=== PATIENT | male | born 1970 | race Caucasian/White ===

== ENCOUNTER 2016-09-03 10:43 | Emergency (ER) | payer BC, MEDICAID ==
[2016-09-03] MEDS ORDERED: Diazepam TAB(*) 5 MG PO ONE (11:01)
--- NOTE | 2016-09-03 11:32 | RAD ---
HISTORY: Cervical pain, recent injury COMPARISONS: December 29, 2008 VIEWS: 3, Frontal, lateral, and open-mouth odontoid views of the cervical spine. FINDINGS: The cervical spine is visualized from the skull base through C7-T1. ALIGNMENT: There is straightening of the normal cervical lordosis. VERTEBRAL BODIES: The odontoid process is intact. The atlantoaxial intervals are symmetric. There is mild anterolateral marginal osteophyte formation at C5-C6. JOINTS: There is mild uncovertebral hypertrophy. INTERVERTEBRAL DISCS: There is diffuse loss of intervertebral disc height. SOFT TISSUE: The prevertebral soft tissues are normal. OTHER: The skull base is normal. The lung apices are clear. IMPRESSION: MILD DEGENERATIVE CHANGES. STRAIGHTENING OF THE CERVICAL LORDOSIS.
--- NOTE | 2016-09-03 12:24 | ED ---
Neck Pain - HPI Summary HPI Summary: Pt here w/ acute Rt sided neck pain. Was lifting a trail hitch a couple of days ago and has Rt sided neck soreness later than day. This has progressed to worse pain over the past couple of days - worse w/ neck movement and painful to swallow as Rt side of neck feels swollen and sore. Has some pain radiating into Rt shoulder and upper arm. Denies numbness, weakness into Rt UE - still moving this but hurts neck to do so when he reaches arm above 90 degrees. H/o tingling in finger tips at times x years - no change since incident and pain. - History of Current Complaint Chief Complaint: EDNeckComplaint Stated Complaint: NECK PAIN, Time Seen by Provider: 09/03/16 10:56 Hx Obtained From: Patient Pain Intensity: 8 - Allergies/Home Medications Allergies/Adverse Reactions: Allergies Allergy/AdvReac Type Severity Reaction Status Date / Time Codeine Allergy Severe syncope Verified 04/26/12 18:16 Levofloxacin [From Levaquin] Allergy See Comment Verified 10/17/13 19:27 PMH/Surg Hx/FS Hx/Imm Hx Previously Healthy: Yes Endocrine/Hematology History: Denies: Hx Diabetes, Hx Thyroid Disease Cardiovascular History: Reports: Hx Hypercholesterolemia - controlled w/ diet, Hx Hypertension - controlled w/ diet Denies: Hx Pacemaker/ICD Respiratory History: Denies: Hx Asthma, Hx Chronic Obstructive Pulmonary Disease (COPD) GI History: Denies: Hx Ulcer Musculoskeletal History: Reports: Hx Arthritis - cervical Sensory History: Denies: Hx Hearing Aid Psychiatric History: Denies: Hx Panic Disorder - Surgical History Surgery Procedure, Year, and Place: appendectomy 1985,. TONSILECTOMY Infectious Disease History: No Infectious Disease History: Denies: Hx Hepatitis, Hx Human Immunodeficiency Virus (HIV), History Other Infectious Disease, Traveled Outside the [place] in Last 30 Days - Family History Known Family History: Positive: Cardiac Disease, Hypertension - Social History Occupation: Unemployed Lives: With Family Alcohol Use: Rare Substance Use Type: Reports: Excessive Caffeine, Marijuana - daily Smoking Status (MU): Current Every Day Smoker Type: Cigarettes Amount Used/How Often: 1 1/2 PPD Length of Time of Smoking/Using Tobacco: 24 YEARS Have You Smoked in the Last Year: Yes Review of Systems Constitutional: Negative Negative: Photophobia, Blurred Vision, Diplopia Negative: Sore Throat, Ear Ache Negative: Chest Pain Negative: Shortness Of Breath Negative: Vomiting, Nausea Positive: no symptoms reported Musculoskeletal: Other - see HPI Skin: Negative Negative: Rash, Bruising Neurological: Other - see HPI Negative: Headache, Weakness, Numbness Psychological: Normal All Other Systems Reviewed And Are Negative: Yes Physical Exam Triage Information Reviewed: Yes Vital Signs On Initial Exam: Initial Vitals Temp Pulse Resp BP Pulse Ox 98.0 F 68 18 151/92 99 09/03/16 10:45 09/03/16 10:45 09/03/16 10:45 09/03/16 10:45 09/03/16 10:45 Vital Signs Reviewed: Yes Appearance: Positive: Well-Appearing, Well-Nourished, Pain Distress - mild, in c -collar Skin: Positive: Warm, Dry - no erythema, no ecchymosis over affected area Head/Face: Positive: Normal Head/Face Inspection Eyes: Positive: Normal, EOMI, DRE, Conjunctiva Clear ENT: Positive: Hearing grossly normal, Pharynx normal Neck: Positive: Supple, Tenderness @ - Rt SCM w/mild edema and TTP (NOTE: pt has heat pack over the area prior to exam) Respiratory/Lung Sounds: Positive: Breath Sounds Present Cardiovascular: Positive: Normal, Pulses are Symmetrical in both Upper and Lower Extremities Musculoskeletal: Positive: Strength/ROM Intact - pt has strength to reach w/ arms however has Rt sided neck pain w/ Rt shoulder flexion past 90 - resistance is 5/5 and equal B/L, Pain @ - Rt SCM is TTP - trap, shoulder joint, humerus w/ overlying musles and forearm are NTTP; 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 Re-Evaluation - Re-Evaluation First Eval Change: Improved - pain radiating into Shoulder resolved s/p valium - neck pain is still present but improving some - c-collar removed, pt moving well w/o it Neck Course/Dx - Course Course Of Treatment: Pt presents w/ radiating neck pain s/p pulling/strain injury. His cervical XR is w/o acute findings - has arthritis here which was discussed w/ pt. Pain improved w/ diazepam. D/c'd home w/ supportive care recommendations and f/u w/ PCP. Reviewed danger s/sx of when to return to ED. Pt agrees w/ plan. - Diagnoses Provider Diagnoses: Cervical strain, acute Discharge - Discharge Plan Condition: Stable Disposition: HOME Prescriptions: Cyclobenzaprine TAB* [Flexeril 10 MG TAB*] 10 mg PO TID PRN #15 tab PRN Reason: Pain Ibuprofen TAB* [Motrin TAB* 600 MG] 600 mg PO Q6H PRN #20 tab PRN Reason: Pain Patient Education Materials: Cervical Strain (ED) Referrals: TERRY Reynolds [Primary Care Provider] - Additional Instructions: Heat in AM to loosen tissue - ice for pain and swelling as day goes on. Continue ibuprofen 600mg every 6 hours with food and alternate with tylenol 650mg every 6 hours for pain. You may take flexeril every 8 hours for pain as well to relax muscle. Apply topical analgesic as needed (ie. biofreeze, bengay, etc). Follow-up with PCP in 1-2 weeks if pain persists or worsens. Call tomorrow to schedule appointment. *If you develop numbness, weakness in arm, return to ED
[2016-09-03] MEDS ORDERED: Ibuprofen TAB* 800 MG PO ONE (12:35)
[2016-09-03] MEDS ORDERED: traMADol TAB* 50 MG PO ONE ×2 (12:54→14:33)
[2016-09-03] MEDS ORDERED: traMADol TAB* 50 MG ONE (12:57)
[2016-09-03 13:05] VITALS: BP 145/105
[2016-09-03] MEDS ORDERED: Ibuprofen TAB* 600 MG PO ONE (14:33)
[2016-09-03] MEDS ORDERED: Cyclobenzaprine TAB* 10 MG PO ONE (14:33)
== END 2016-09-03 13:03 | disposition home or self-care (01) ==
LOC: ED 10:43
DX: S13.4XXA Sprain of ligaments of cervical spine, initial encounter (principal); F17.210 Nicotine dependence, cigarettes, uncomplicated; X50.0XXA Overexertion from strenuous movement or load, initial encounter; Y92.9 Unspecified place or not applicable; Z88.5 Allergy status to narcotic agent
CPT/HCPCS: 72040; 99282; A9270-GY

== ENCOUNTER 2017-01-25 09:48 | Emergency (ER) | payer BC, MEDICAID ==
[2017-01-25 10:00] VITALS: BP 136/89
[2017-01-25] MEDS ORDERED: Ketorolac INJ* 60 MG/2 ML VIAL IM ONE (10:23)
--- NOTE | 2017-01-25 10:34 | UC ---
Back Pain HPI - HPI Summary HPI Summary: 46 y/o male presents to the urgent care c/o lower back pain since 1800 yesterday, along with left neck and shoulder pain. 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 pain is 8/10 specially with movement. Lower back pain radiates to the left hip with mild numbness and tingling in the left toes. Neck pain radiates to the left shoulder with numbness on the tip of the finger. Pt states has Hx of lower back pain but hasn't follow up with the orthopedic. Pt denies urinary or fecal incontinence, saddle anesthesia, SOB, fever, chest pain, N/V/D. Pt has not taking anything to alleviate symptoms - History of Current Complaint Chief Complaint: UCBackPain Stated Complaint: LOWER BACK/SHOULDER/NECK PAIN Time Seen by Provider: 01/25/17 10:03 Hx Obtained From: Patient Onset/Duration: Sudden Onset, Lasting Days - 1 day, Still Present Timing: Constant Severity Initially: Moderate Severity Currently: Severe Pain Intensity: 8 Pain Scale Used: 0-10 Numeric Back Pain: Is Discrete @ - lower back and neck pain, Radiates To - to left hip and left shoulder Aggravating: Movement, Lifting, Bending, Walking Alleviating: Rest Associated Signs And Symptoms: Positive: Numbness, Tingling - lower lf leg, Pain with Weight Bearing. Negative: Swelling, Redness, Fever, Abdominal Pain, Flank Pain, Bladder Incontinence, Bowel Incontinence, Weight Loss - Risk Factors AAA Risk Factors: Negative TAD Risk Factors: Negative Cauda Equina Risk Factors: Negative Epidural Abscess Risk Factors: Negative - Allergies/Home Medications Allergies/Adverse Reactions: Allergies Allergy/AdvReac Type Severity Reaction Status Date / Time Codeine Allergy Severe syncope Verified 01/25/17 09:54 Levofloxacin [From Levaquin] Allergy See Comment Verified 01/25/17 09:54 Home Medications: Home Medications High Blood Pressure Med 1 tab PO DAILY 01/25/17 [History] PMH/Surg Hx/FS Hx/Imm Hx Previously Healthy: Yes Endocrine History: Dyslipidemia Cardiovascular History: Hypertension - Surgical History Surgical History: Yes Surgery Procedure, Year, and Place: appendectomy 1985,. TONSILECTOMY - Family History Known Family History: Positive: Cardiac Disease, Hypertension - Social History Occupation: Employed Full-time Lives: With Family Alcohol Use: Occasionally Substance Use Type: Marijuana Substance Use Comment - Amount & Last Used: daily Smoking Status (MU): Heavy Every Day Tobacco Smoker Type: Cigarettes Amount Used/How Often: 1 1/2 PPD Length of Time of Smoking/Using Tobacco: 24 YEARS Have You Smoked in the Last Year: Yes Review of Systems Constitutional: Negative Skin: Negative Eyes: Negative ENT: Negative Respiratory: Negative Cardiovascular: Negative Gastrointestinal: Negative Genitourinary: Negative Motor: Negative Neurovascular: Negative Musculoskeletal: Other: - Lower back pain, neck pain Neurological: Paresthesia - LF lower leg, Numbness - LF lower leg and LF hand Psychological: Negative All Other Systems Reviewed And Are Negative: Yes Physical Exam Triage Information Reviewed: Yes Appearance: Well-Appearing, No Pain Distress, Well-Nourished Vital Signs: Initial Vital Signs Temp 98.8 F 01/25/17 09:56 Pulse 70 01/25/17 09:56 Resp 18 01/25/17 09:56 BP 136/89 01/25/17 09:56 Pulse Ox 98 01/25/17 09:56 Vital Signs Reviewed: Yes Eye Exam: Normal Eyes: Positive: Conjunctiva Clear - PERRLA, EOMI ENT Exam: Normal ENT: Positive: Normal ENT inspection, Hearing grossly normal, Pharynx normal, TMs normal Dental Exam: Normal Neck exam: Normal Neck: Positive: Supple, No Lymphadenopathy, Tenderness @ - point tenderness at the level of C5-C6. FROM of neck. FROm of B/L shoulders, no tenderness on palaption, swelling or erythema noted. positive pulses and sensation of the upper extremities WNL.. Negative: Nuchal Rigidity Respiratory Exam: Normal Respiratory: Positive: Chest non-tender, Lungs clear, Normal breath sounds Cardiovascular Exam: Normal Cardiovascular: Positive: RRR, No Murmur, Pulses Normal Abdominal Exam: Normal Abdomen Description: Positive: Nontender, No Organomegaly, Soft. Negative: CVA Tenderness (R), CVA Tenderness (L) Bowel Sounds: Positive: Present Musculoskeletal: Positive: Other: - BACK: Patient walked into the urgent care room with symmetric ambulation with signs of limping, able to bear weight. No signs of trauma, No masses palpated. Point tenderness at the level of L4-L5 with positive paraspinal muscle tenderness, No CVAT, no flank ecchymosis . No sacroiliac notch tenderness, No saddle anesthesia.ROM: limited due to pain, unable to perform Straight Leg Raise due to pain Patellar reflexes: brisk, symmetric Muscle strength lower extremities. Dorsiflexion/ plantar flexion of ankles. Heel/ toe walk. Lower extremities: Femoral, popliteal, posterior tibial , and dorsalis pedis pulses positive. Sensation WNL. Neurological Exam: Normal Psychological Exam: Normal Skin Exam: Normal Back Pain Course/Dx - Course Course Of Treatment: 46 y/o male presents to the urgent care c/o lower back pain since 1800 yesterday, along with left neck and shoulder pain. 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 pain is 8/10 specially with movement. Lower back pain radiates to the left hip with mild numbness and tingling in the left toes. Neck pain radiates to the left shoulder with numbness on the tip of the finger. Pt states has Hx of lower back pain but hasn't folow up with the orthopedic. Pt denies urinary or fecal incontinence, saddle anesthesia, SOB, fever, chest pain , N/V/D. Pt has not taking anything to alleviate symptoms. Hx obtained. Cervical and lumbosacral X-ray ordered to compare from previous images to r/o any changes. Impression: No fracture or abnormality observed of lumboscaral X- ray. Cervical impression: mild degenerative changes with streagtening of cervical at C5-C6. Previous images reviewed. Pt lumbar MRI and CT done in 2013 shows degenerative disc disease at the level of L3-L4. Pt has never f/u with an Orthopedic despite multiple recommendations. Pt given at the clinic a Toradol IM inj. Pt felt better pain decrease. Pt Rx flexeril, Medrol dose hudson and Naproxen to alleviate symptoms. I discussed all the findings and test results with the patient. Patient D/C home and was instructed to return to the urgent care or PCP immediately if any of the symptoms return or worsens. Plan of care was discussed with the patient and understands and agrees. All questions were answered at patient satisfaction. There were no further complaints or concerns. Pt left the clinic ambulating, A&Ox3 - Differential Dx/Diagnosis Differential Diagnosis/HQI/PQRI: Cauda Equina Syndrome, Compressive Cord Syndrome, Fracture, Strain, Sprain Provider Diagnoses: 1- Acute lower back pain with radiculopathy. 2- Acute neck pain Discharge - Discharge Plan Condition: Stable Disposition: HOME Prescriptions: Cyclobenzaprine TAB* [Flexeril 10 MG TAB*] 10 mg PO TID PRN #15 tab PRN Reason: Spasms - Back Methylprednisolone [Medrol Dosepak 4 MG*] 4 mg PO .SEE [employer]STRUCTION #1 hudson Naproxen TAB* [Naprosyn 250 mg TAB*] 500 mg PO Q8H PRN #30 tab PRN Reason: Pain Patient Education Materials: Acute Low Back Pain (ED), Lumbar Radiculopathy (ED ), Cervical Radiculopathy (ED) Referrals: Mike HAIRSTON,Jt Wooten [Primary Care Provider] - 1 Week Aly Alex MD [Medical Doctor] - 7 Days Additional Instructions: 1-Please take medications as directed to alleviate pain and swelling. Flexeril may interact with your depression medication if you start feeling confusion, tachycardia, sweating, tremor, please stop the medication immediately. Please do not drive. 2-Please wear a back support and avoid strenuous exercise, heavy lifting. 3- Please f/u with Orthopedic or your PCP in 1 week if not improvement of symptoms for further evaluation and treatment. 4- F/u with PT referral for evaluation and treatment
--- NOTE | 2017-01-25 11:09 | RAD ---
Indication: Neck pain. 5 views of the cervical spine demonstrates straightening of the normal lordosis. Disc space narrowing at C5-C6 with mild ventral osteophyte formation is noted. Spinal canal is intact. IMPRESSION: Mild degenerative disc disease at C5-C6. No fracture is noted.
--- NOTE | 2017-01-25 11:09 | RAD ---
Indication: Back pain. 5 views of lumbar spine demonstrates vertebral bodies to be normal in height. Disc spaces all well-preserved. Pedicles appear intact. IMPRESSION: No fracture of the lumbar spine is noted.
== END 2017-01-25 11:42 | disposition home or self-care (01) ==
LOC: UCEAST 09:48
DX: M54.16 Radiculopathy, lumbar region (principal); M54.5 Low back pain; M54.2 Cervicalgia; F17.210 Nicotine dependence, cigarettes, uncomplicated; I10 Essential (primary) hypertension
CPT/HCPCS: 72050; 72110; 99212; G0463; J1885

== ENCOUNTER 2017-06-04 09:37 | Emergency (ER) | payer BC ==
[2017-06-04 10:24] LABS: ABS Basophils 0.1 10^3/ul (0-0.2); ABS Eosinophils 0.2 10^3/ul (0-0.6); ABS Lymphocytes 2.7 10^3/ul (1.0-4.8); ABS Monocytes 0.8 10^3/ul (0-0.8); ABS Neutrophils 4.5 10^3/ul (1.5-7.7); ABS Nucleated RBC 0 10^3/ul; Eosinophil % 2.3 % (0-6); Hematocrit 42 % (42-52); Hemoglobin 14.5 g/dl (14.0-18.0); Lymphocyte % 32.9 % (25-47); Mean Corpuscular HGB Conc 34 g/dl (31-36); Mean Corpuscular Hemoglobin 30 pg (27-31); Mean Corpuscular Volume 88 fL (80-94); Mean Platelet Volume 7 um3 (7.4-10.4); Nucleated Red Blood Cells % 0; Platelet Count 278 10^3/ul (150-450); Red Blood Count 4.81 10^6/ul (4.0-5.4); Red Cell Distribution Width 13 % (10.5-15); White Blood Count 8.2 10^3/ul (3.5-10.8)
[2017-06-04 10:32] LABS: Urine Appearance Clear; Urine Blood Negative (Negative); Urine Color Yellow; Urine Ketones Negative (Negative); Urine Protein Negative (Negative); Urine Specific Gravity 1.005 (1.010-1.030); Urine Urobilinogen Negative (Negative)
[2017-06-04] MEDS ORDERED: Ketorolac INJ* 30 MG/ML 1 ML VIAL IV ONE (10:35)
[2017-06-04] MEDS ORDERED: Ondansetron INJ* 2 MG/ML VIAL IV ONE (10:35)
[2017-06-04] MEDS ORDERED: NS 0.9% 1000 ML* 1,000 ML IV ONE (10:35)
[2017-06-04] MEDS ORDERED: Morphine INJ* 4 MG/ML 1 ML CARPUJECT IV ONE (10:35)
[2017-06-04 10:37] LABS: EGFR Non-African American 93.7 (>60)
[2017-06-04] MEDS ORDERED: Iohexol 300* (CONTRAST) 10 ML SDV IV ONE (10:40)
--- NOTE | 2017-06-04 11:21 | RAD ---
HISTORY: Chest trauma COMPARISONS: None TECHNIQUE: Multiple contiguous axial CT scans of the chest were obtained with intravenous contrast. Coronal and sagittal multiplanar reformations are also submitted for review. FINDINGS: NECK AND THYROID: The lower neck and thyroid are unremarkable. CHEST WALL: There is no lower cervical, axillary, or supraclavicular lymphadenopathy by size criteria. HEART AND PERICARDIUM: The heart is unremarkable. AORTA AND PULMONARY VASCULATURE: The aorta and pulmonary vasculature are normal. MEDIASTINUM: There is no mediastinal lymphadenopathy by size criteria. BEBA: There is no hilar lymphadenopathy by size criteria. AIRWAY AND ESOPHAGUS: The airway is unremarkable, without endobronchial filling defect. The esophagus is grossly normal. LUNG PARENCHYMA: The lungs are clear. PLEURA: No pleural abnormalities are noted. UPPER ABDOMEN: The liver appears homogeneously enlarged. There is fatty infiltration of the liver. BONES AND SOFT TISSUES: Mild degenerative changes are noted. OTHER: There is no active arterial extravasation. IMPRESSION: 1. FATTY INFILTRATION OF THE LIVER. 2. NO ACUTE CT PATHOLOGY OF THE CHEST.
--- NOTE | 2017-06-04 11:22 | RAD ---
INDICATION: Fall. Pain. COMPARISON: CT cervical spine April 06, 2017 TECHNIQUE: Noncontrast axial source images was performed from the skull base to the thoracic inlet. Coronal and and sagittal reformatted images were generated. FINDINGS: Vertebrae: There is no fracture or acute focal bony lesion. Alignment: The craniocervical junction appears normal. The cervical vertebrae are normally aligned. Central Canal: There are no significant CT abnormalities of the central canal or foramina. MR imaging is a more sensitive method to evaluate the canal and foramina. There is also recent myelogram which showed a small right lateral disc extrusion as well as degenerative change with partial CSF effacement at C5-C6. Intervertebral disc spaces: There is mild narrowing at C5-C6 with posterior spondylitic ridge formation, endplate sclerosis, uncinate process spurring there is mild right-sided foraminal narrowing. The disc spaces are maintained. Brain: The visualized brain appears unremarkable. Soft tissues: The visualized soft tissue elements of the neck are unremarkable. The prevertebral soft tissues appear normal. The lung apices are clear. IMPRESSION: DEGENERATIVE CHANGES C4-C5 AND C5-C6. NO ACUTE FINDINGS.
[2017-06-04 12:55] VITALS: BP 158/91
--- NOTE | 2017-06-04 15:56 | ED ---
Danny Keys Thomas, scribed for Elbert Singh MD on 06/04/17 at 1030 . Complex/Multi-Sys Presentation - HPI Summary HPI Summary: The patient is a 47 year old complaining left shoulder pain and left-sided chest pain that began suddenly earlier today after he fell out of a tree stand that was 15 feet in the air. The pain is constant and is aggravated by coughing. He denies neck pain and head pain. - History Of Current Complaint Chief Complaint: EDGeneral Hx Obtained From: Patient Onset/Duration: Sudden Onset, Lasting Hours - earlier today, Still Present Timing: Constant Location: Pain At: - left shoulder, left-sided chest Aggravating Factor(s): Coughing Associated Signs And Symptoms: Positive: Other - Left shoulder pain, left-sided chest pain; NEGATIVE: neck pain, head pain - Allergies/Home Medications Allergies/Adverse Reactions: Allergies Allergy/AdvReac Type Severity Reaction Status Date / Time Codeine Allergy Severe syncope Verified 06/04/17 09:56 Levofloxacin [From Levaquin] Allergy See Comment Verified 06/04/17 09:56 Home Medications: Home Medications Lisinopril TAB* [Prinivil TAB*] 20 mg PO DAILY 06/04/17 [History Confirmed 06/04] Oxymetazoline 0.05% NASAL SPR* [Afrin 0.05% NASAL SPRAY*] 1 spray NASAL Q12H PRN 06/04/17 [History Confirmed 06/04/17] Venlafaxine ER (NF) [Effexor ER (NF)] 150 mg PO DAILY 06/04/17 [History Confirmed 06/04/17] PMH/Surg Hx/FS Hx/Imm Hx Previously Healthy: Yes Endocrine/Hematology History: Denies: Hx Diabetes, Hx Thyroid Disease Cardiovascular History: Reports: Hx Hypercholesterolemia - controlled w/ diet, Hx Hypertension - on meds Denies: Hx Pacemaker/ICD Respiratory History: Denies: Hx Asthma, Hx Chronic Obstructive Pulmonary Disease (COPD) GI History: Denies: Hx Ulcer History: Denies: Hx Renal Disease Musculoskeletal History: Reports: Hx Arthritis - cervical Sensory History: Denies: Hx Hearing Aid Neurological History: Reports: Other Neuro Impairments/Disorders - PAIN CLINIC PT Psychiatric History: Denies: Hx Panic Disorder - Surgical History Surgery Procedure, Year, and Place: appendectomy 1985,. TONSILLECTOMY Infectious Disease History: Denies: Hx Hepatitis, Hx Human Immunodeficiency Virus (HIV), History Other Infectious Disease, Traveled Outside the [place] in Last 30 Days - Family History Known Family History: Positive: Cardiac Disease, Hypertension - Social History Alcohol Use: Rare Alcohol Amount: 1-2x per week Substance Use Type: Reports: Marijuana Substance Use Comment - Amount & Last Used: daily Smoking Status (MU): Heavy Every Day Tobacco Smoker Type: Cigarettes Amount Used/How Often: 1 1/2 PPD, smoking for 24 years Length of Time of Smoking/Using Tobacco: 24 YEARS Have You Smoked in the Last Year: Yes Review of Systems Negative: Fever Positive: Chest Pain - left-sided Positive: Other - Left shoulder pain; NEGATIVE: neck pain, head pain All Other Systems Reviewed And Are Negative: Yes Physical Exam - Summary Physical Exam Summary: Appearance: The patient is well-nourished in no acute distress and in no acute pain. Skin: The skin is warm and dry and skin color reflects adequate perfusion. HEENT: The head is normocephalic and atraumatic. The pupils are equal and reactive. The conjunctivae are clear and without drainage. Nares are patent and without drainage. Mouth reveals moist mucous membranes and the throat is without erythema and exudate. The external ears are intact. The ear canals are patent and without drainage. The tympanic membranes are intact. Neck: the neck is supple with full range of motion and non-tender. There are no carotid bruits. There is no neck vein distension. Respiratory: Chest is tender to palpation to the anterior superior portion of the left chest, mildly. Lungs are clear to auscultation and breath sounds are symmetrical and equal. Cardiovascular: Heart is regular rate and rhythm. There is no murmur or rub auscultated. There is no peripheral edema and pulses are symmetrical and equal. Abdomen: The abdomen is soft and non-tender. There are normal bowel sounds heard in all four quadrants and there is no organomegaly palpated. Musculoskeletal: The patient is tender to palpation over the left shoulder and clavicle. There is no back tenderness noted. Extremities are non-tender with full range of motion. There is good capillary refill. There is no peripheral edema or calf tenderness elicited. Neurological: Patient is alert and oriented to person, place and time. The patient has symmetrical motor strength in all four extremities. Cranial nerves are grossly intact. Deep tendon reflexes are symmetrical and equal in all four extremities. Psychiatric: The patient has an appropriate affect and does not exhibit any anxiety or depression. Triage Information Reviewed: Yes Vital Signs On Initial Exam: Initial Vitals BP 158/95 06/04/17 09:51 Vital Signs Reviewed: Yes - [place] Coma Scale Coma Scale Total: 15 Diagnostics - Vital Signs Vital Signs Pulse Resp BP Pulse Ox 06/04/17 09:53 61 16 97 06/04/17 09:51 158/95 - Laboratory Lab Results: Lab Results 06/04/17 Range/Units 10:00 WBC 8.2 (3.5-10.8) 10^3/ul RBC 4.81 (4.0-5.4) 10^6/ul Hgb 14.5 (14.0-18.0) g/dl Hct 42 (42-52) % MCV 88 (80-94) fL MCH 30 (27-31) pg MCHC 34 (31-36) g/dl RDW 13 (10.5-15) % Plt Count 278 (150-450) 10^3/ul MPV 7 L (7.4-10.4) um3 Neut % (Auto) 54.6 (38-83) % Lymph % (Auto) 32.9 (25-47) % [place] % (Auto) 9.5 H (1-9) % Eos % (Auto) 2.3 (0-6) % Baso % (Auto) 0.7 (0-2) % Absolute Neuts (auto) 4.5 (1.5-7.7) 10^3/ul Absolute Lymphs (auto) 2.7 (1.0-4.8) 10^3/ul Absolute Monos (auto) 0.8 (0-0.8) 10^3/ul Absolute Eos (auto) 0.2 (0-0.6) 10^3/ul Absolute Basos (auto) 0.1 (0-0.2) 10^3/ul Absolute Nucleated RBC 0 10^3/ul Nucleated RBC % 0 Result Diagrams: 06/04/17 10:00 06/04/17 10:00 Lab Statement: Any lab studies that have been ordered have been reviewed, and results considered in the medical decision making process. - CT CT Chest CT Interpretation: No Acute Changes - 1. FATTY INFILTRATION OF THE LIVER. 2. NO ACUTE CT PATHOLOGY OF THE CHEST. Dr. Singh has reviewed this report. CT Interpretation Completed By: Radiologist Cervical Spine CT CT Interpretation: No Acute Changes - DEGENERATIVE CHANGES C4-C5 AND C5-C6. NO ACUTE FINDINGS. Dr. Singh has reviewed this report. CT Interpretation Completed By: Radiologist - EKG 09:53 Cardiac Rate: Bradycardia EKG Rhythm: Sinus Rhythm - at 61 BPM EKG Interpretation: Borderline bradycardia. Normal EKG. Complex Multi-Symp Course/Dx Course Of Treatment: Mr. Restrepo fell about 15 feet out of a tree with his ' climbing tree stand'. He landed feet first but the tree stand was under his left arm and therefore he caught a lot of his weight with his left axilla. This happened about 0730 and he was able to get up and walk [place] miles [place] tree stand. I saw him 2 1/2 or so hours after the fall. His exam pointed to isolated left shoulder/chest injury. CT was negative and he was placed in page immobilizer. He had pain with any ROM of his left shoulder. N/V/M was intact. - Diagnoses Provider Diagnoses: Shoulder injury, Shoulder immobilizer Discharge - Discharge Plan Condition: Stable Disposition: HOME Prescriptions: HYDROcodone/ACETAMIN 5-325 MG* [[place] 5-325 TAB*] 1 tab PO Q6H PRN #20 tab MDD 4 PRN Reason: Pain Patient Education Materials: Shoulder Pain (ED) Referrals: Ramana Newell MD [Medical Doctor] - 3 Days Additional Instructions: Follow up with Dr. Newell in three days. Return to the emergency department for any new or worsening symptoms. The documentation as recorded by the Danny knight Thomas accurately reflects the service I personally performed and the decisions made by , Elbert Singh MD.
== END 2017-06-04 12:13 | disposition home or self-care (01) ==
LOC: ED 09:37
DX: S49.92XA Unspecified injury of left shoulder and upper arm, initial encounter (principal); W17.89XA Other fall from one level to another, initial encounter; Y93.9 Activity, unspecified; Y92.9 Unspecified place or not applicable; R07.89 Other chest pain; M50.322 Other cervical disc degeneration at C5-C6 level; Z88.1 Allergy status to other antibiotic agents; Z88.5 Allergy status to narcotic agent; E78.00 Pure hypercholesterolemia, unspecified; Z90.89 Acquired absence of other organs; F12.90 Cannabis use, unspecified, uncomplicated; F17.210 Nicotine dependence, cigarettes, uncomplicated
CPT/HCPCS: 36415; 71260; 72125; 80053; 81003; 84484; 85025; 93005; 96361; 96374; 96375; 99283; J1885; J2270; J2405; Q9967

== ENCOUNTER 2017-06-26 05:56 | Observation (INO) | payer BC ==
[~2017-06-26 05:56] MED LIST: Buffered Lidocaine 0.9% SYRIN* 5 ML/SYR SYRINGE INTRADERM ONE
[2017-06-26] MEDS ORDERED: ceFAZolin 2 GM PREMIX (*) 2 GM/50 ML BAG IVPB ONE (06:26)
[2017-06-26] MEDS ORDERED: Buffered Lidocaine 0.9% SYRIN* 5 ML/SYR SYRINGE ONE (06:27)
[2017-06-26] MEDS ORDERED: Thrombin 5,000 UNITS* 1 APPLIC KIT - topical use - TOPICAL ONE (07:15)
[2017-06-26] MEDS ORDERED: Bacitracin IV* 50,000 UNITS INJ ONE (07:15)
[2017-06-26] MEDS ORDERED: Lidocaine 1% MPF wEPI 200,000* 30 ML SDV ONE (07:15)
[2017-06-26] MEDS ORDERED: fentaNYL* 50 MCG/ML 2 ML VIAL (100 MCG VIAL) ONE ×5 (07:22→12:06)
[2017-06-26] MEDS ORDERED: Midazolam* 1 MG/ML 2 ML VIAL (2 MG) ONE ×2 (07:22→07:58)
[2017-06-26] MEDS ORDERED: Rocuronium* 10 MG/ML VIAL ONE ×2 (07:57→09:06)
[2017-06-26] MEDS ORDERED: Esmolol* 10 MG/ML 10 ML (100 mg) ONE (08:04)
[2017-06-26] MEDS ORDERED: Dexamethasone IV* 4 MG/ML 1 ML (4 MG) ONE (08:12)
[2017-06-26] MEDS ORDERED: Dexmedetomidine* 200 MCG/2 ML 2 ML VIAL ONE (08:12)
[2017-06-26] MEDS ORDERED: Propofol* 10 MG/ML 20 ML BTL IV PUSH ONE ×2 (08:12→09:21)
[2017-06-26] MEDS ORDERED: Famotidine IV* 10 MG/ML 2 ML (20 mg) ONE (08:12)
[2017-06-26] MEDS ORDERED: Ondansetron INJ* 2 MG/ML VIAL ONE (08:12)
[2017-06-26] MEDS ORDERED: KETAMINE HCL* 50 MG/ML 10 ML VIAL ONE (08:22)
[2017-06-26] MEDS ORDERED: Lidocaine 2% PF * 5 ML VIAL ONE (08:36)
[2017-06-26] MEDS ORDERED: Desflurane* 240 ML INH ONE (08:36)
[2017-06-26] MEDS ORDERED: EPHEDrine (Pressors)* 50 MG/ML VIAL ONE (08:44)
[2017-06-26] MEDS ORDERED: Hetastarch in NS* 500 ML IV ONE (09:29)
[2017-06-26] MEDS ORDERED: Phenylephrine INJ* 10 MG/ML 1 ML VIAL (10 MG) ONE (09:51)
[2017-06-26] MEDS ORDERED: PROCHLORPERAZINE INJ 5 MG/ML 2 ML VIAL IV PRN (09:59)
[2017-06-26] MEDS ORDERED: Acetaminophen TAB* 325 MG PO PRN (09:59)
[2017-06-26] MEDS ORDERED: Levalbuterol 0.63MG/3ML NEB* UNIT OF USE INH PRN (09:59)
[2017-06-26] MEDS ORDERED: DiMENhydriNATE IV* 50 MG/ML VIAL IV PUSH PRN (09:59)
[2017-06-26] MEDS ORDERED: Ondansetron INJ* 2 MG/ML VIAL IV PRN ×2 (09:59→10:17)
[2017-06-26] MEDS ORDERED: Naloxone* 0.4 MG/ML 1 ML VIAL IV PRN (09:59)
[2017-06-26] MEDS ORDERED: diPHENhydraMINE IV* 50 MG/ML 1 ml VIAL (BENADRYL) IV PRN (09:59)
[2017-06-26] MEDS ORDERED: Magnesium Hydroxide LIQ* 30 ML UDC PO PRN (10:17)
[2017-06-26] MEDS ORDERED: Nicotine Inhaler* 10 MG AMP INH PRN (10:28)
[2017-06-26] MEDS ORDERED: Mouth Piece, Nicotine* 1 EACH CARTRIDGE INH PRN ×2 (10:28)
[2017-06-26] MEDS ORDERED: Neostigmine Methylsulfate* 2 MG/2 ML SYRINGE ONE (10:34)
[2017-06-26] MEDS ORDERED: Glycopyrrolate IV* 0.2 MG/ML 1 ML VIAL ONE (10:34)
[2017-06-26] MEDS ORDERED: Levalbuterol 0.63MG/3ML NEB* UNIT OF USE INH ONE (10:46)
[2017-06-26] MEDS: fentaNYL* 50 MCG/ML 2 ML VIAL (100 MCG VIAL) IV PRN ×4 (10:55→12:08)
[2017-06-26] MEDS ORDERED: Nicotine PATCH 21 MG/24 HR* PATCH TRANSDERM SCH (11:00)
--- NOTE | 2017-06-26 11:18 | RAD ---
INDICATION: Anterior cervical discectomy with fusion. COMPARISON: Comparison is made with a prior CT of the cervical spine from June 04 2017. TECHNIQUE: 3 cross table lateral films of the cervical spine were obtained portably in the operating room. FINDINGS: The second film demonstrates a localization needle which projects over the C5-C6 disc space. The third film demonstrates an anterior spinal and disc fusion at the C4-C5 and C5-C6 levels. There is a metallic plate anterior to the C4, C5 and C6 vertebral transfixed with screws at each level. There is also a disc fusion at each level. IMPRESSION: INTRAOPERATIVE CONTROL FILMS.
[2017-06-26] MEDS ORDERED: Acetaminophen TAB* 325 MG ONE (11:24)
[2017-06-26] MEDS: HYDROcodone/ACETAMIN 5-325 MG* 1 TAB PO PRN ×4 (13:51→23:19)
[2017-06-26] MEDS ORDERED: HYDROcodone/ACETAMIN 5-325 MG* 1 TAB PO ONE (16:45)
[2017-06-26] MEDS ORDERED: Cyclobenzaprine TAB* 10 MG PO PRN (18:51)
[2017-06-27] MEDS: HYDROcodone/ACETAMIN 5-325 MG* 1 TAB PO PRN (05:17)
[2017-06-27] MEDS ORDERED: Nicotine Patch Removal NOTE FOLLOW UP SCH (06:00)
--- NOTE | 2017-06-27 08:08 | PN ---
Progress Note - Progress Note Date of Service: 06/27/17 SOAP: Subjective: [S/p ACD F C4-5 and C5-6, POD #1. Feeling well this morning. Pre-op upper extremity numbness and pain improving. Complains of neck pain and posterior neck muscle soreness. Eating and drinking soft foods and liquids without difficulty. Pain controlled with oral pain medications. Denies headache, nausea and chest pain.] Objective: [ Vital Signs: Temp Pulse Resp BP Pulse Ox 98.3 F 72 16 126/74 95 06/27/17 02:27 06/27/17 02:27 06/27/17 07:27 06/27/17 02:27 06/27/17 02:27 General: Alert and oriented. No distress. Neuro: Motor and sensory intact. Incision: Clean and without swelling or erythema. Steri strips in place. Wound drain removed today. ] Assessment: [Satisfactory post-op course.] Plan: [1. Discharge home today. 2. Discharge instructions provided and discussed. ]
[2017-06-27] MEDS ORDERED: Venlafaxine EXT RELEASE CAP* 75 MG PO SCH (09:00)
[2017-06-27] MEDS ORDERED: busPIRone TAB* 15 MG PO SCH (09:00)
[2017-06-27] MEDS ORDERED: Venlafaxine EXT RELEASE CAP* 37.5 MG PO SCH (09:00)
[2017-06-27] MEDS ORDERED: Lisinopril TAB* 10 MG PO SCH (09:00)
[2017-06-27 09:55] VITALS: BP 139/92
--- NOTE | 2017-06-28 13:32 | OP ---
OPERATIVE REPORT: DATE OF OPERATION: 06/26/17 DATE OF : 68 SURGEON: Rodney Maldonado MD STICKER HAND: JOHANNA Cerrato ANESTHESIA: General. PRE-OP DIAGNOSES: 1. Cervical spondylosis, C4-5. 2. Herniated nucleus pulposus, C5-6. POST-OP DIAGNOSES: 1. Herniated nucleus pulposus, C4-5. 2. Herniated nucleus pulposus, C5-6. OPERATIVE PROCEDURE: Anterior cervical diskectomy and fusion C4-5 and C5-6 with placement of biomech anical interspace device C4-5, C5-6 with anterior instrumentation. DESCRIPTION OF PROCEDURE: After satisfactory general anesthesia was obtained, the patient was placed on the operating table in the supine position with the head supported on a horseshoe headrest with t he neck in slight extension. The anterior aspect of the cervical spine was clipped, prepped and drap ed in sterile manner for anterior cervical exposure and a skin incision was outlined over the C5 vert ebral body assisted by benefits assistant radiograph. This incision was begun at the midline and extended to the right side a distance of 3 cm. This incision was infiltrated with 1% Xylocaine with epinephrine afte r which it was turned down sharply to the level of the subcutaneous tissues. A superior and inferior ly based subcutaneous flap was then fashioned and the platysma muscle divided along the direction of its fibers. Utilizing a combination of sharp and blunt dissection, a dissection plane was carried out between the sternocleidomastoid and strap muscles down to the anterior aspect of the spine. An intr aoperative x-ray was obtained verifying the localization of the C5-6 level after which the C5-6 level was first addressed by removing an anterior spur with the [employer] Lizandro drill after which the anterior t wo- thirds of disk material was removed utilizing a combination of the [employer] Liz[employer] drill, curettes and pituitary rongeurs. [place] distractor pins were then placed in the C5 and C6 vertebral bodies and ge ntle disk space distraction applied. The operating microscope was then brought into the field and th e remainder of the procedure was done under microscopic visualization. Projecting back posteriorly w as a disk herniation which was removed utilizing microdissection. This was carried back until normal dura was encountered. A spur was removed projecting primarily at the superior aspect of the C6 body . The dissection was carried out laterally until both C6 nerve roots were noted to be free in their course. The interspace was then prepared for receipt of a 7-mm PEEK spacer that had been filled with bony matrix. This was slightly countersunk. Attention was then turned to the C4-5 level where a sim ilar decompression was carried out. The anterior two-thirds of the disk material was removed with [facility] combination of the [employer] Liz[employer] drill as well as angle curettes and pituitary forceps. [place] distrac tor pins were then placed in the C4 and C5 vertebral bodies and gentle disk space distraction applied . Under microscopic visualization, the posterior third of the disk was removed and there has never b een an extruded disk fragment projecting more towards the midline and just to the right of midline. The dissection was carried back until normal dura was encountered. At the conclusion of the decompre ssion, a nerve hook would go out readily with both C5 nerve roots. This interspace too accepted a 7- mm biomechanical spacer made of PEEK and filled with bony matrix. After both of the interbody spacer s were in place, a [employer] Zevo plate was selected to span from C4 to C6. This was secured into po sition with 13-mm self-drilling screws. An x- ray taken after plate placement showed satisfactory sc rew and graft placement. The wound was then thoroughly irrigated after which a drain was placed in t he prevertebral space and tunneled out towards the right side. The subcutaneous tissues were then re approximated with 3-0 Vicryl and the skin closed with Steri- Strips. The estimated blood loss was le ss then 50 cc and final sponge, padding, and needle counts were correct. The patient was taken to [facility] recovery room, extubated and in stable condition. [id number] #: [id number]
== END 2017-06-27 08:40 | disposition home or self-care (01) ==
LOC: OR 05:56 → SSU 10:17
PROVIDERS: ADMIT Neurological Surgery; ATTEND Neurological Surgery
PROC: 0RG10A0 Fusion of Cervical Vertebral Joint with Interbody Fusion Device, Anterior Approach, Anterior Column, Open Approach (ICD-10-PCS; 2017-06-26)
PROC: 0RB30ZZ Excision of Cervical Vertebral Disc, Open Approach (ICD-10-PCS; principal; 2017-06-26 07:45)
DX: M50.222 Other cervical disc displacement at C5-C6 level (principal); M47.22 Other spondylosis with radiculopathy, cervical region; M79.602 Pain in left arm
CPT/HCPCS: 72020; 96374; 96375; A9270-GY; C1713; C1776; C9359; G0378; J0690; J1100; J2001; J2250; J2405; J2704; J3010; J7614

== ENCOUNTER 2021-01-06 09:50 | Observation (INO) ==
[~2021-01-06 09:50] MED LIST changes: -Buffered Lidocaine 0.9% SYRIN* 5 ML/SYR SYRINGE INTRADERM ONE; +Lactated Ringers 1000 ml BAG 1,000 ML IV SCH
[2021-01-06] MEDS ORDERED: ceFAZolin 2 GM in NS PREMIX 2 GM/100 ML BAG IVPB ONE (10:29)
[2021-01-06] MEDS ORDERED: Buffered Lidocaine 1% SYRIN 1 ml INTRADERM ONE (10:29)
[2021-01-06] MEDS: Buffered Lidocaine 1% SYRIN 1 ml INTRADERM ONE ×2 (10:38→11:16)
[2021-01-06] MEDS ORDERED: Midazolam 2 mg/2 ml VIAL 1 mg/ml 2 ml VIAL (2 mg) ONE (11:10)
[2021-01-06] MEDS ORDERED: fentaNYL 100 mcg/2 ml 50 MCG/ML VIAL ONE ×2 (11:10→17:24)
[2021-01-06] MEDS ORDERED: ROPIVACAINE 5 MG/ML 30 ML BTL (0.5%) ONE (13:23)
[2021-01-06] MEDS ORDERED: Rocuronium 50 mg VIAL 10 mg/ml 5 ml VIAL (50 mg) ONE ×2 (13:47→14:32)
[2021-01-06] MEDS ORDERED: Propofol 10 MG/ML 20 ML BTL ONE (13:47)
[2021-01-06] MEDS ORDERED: HYDROmorphone 1 MG/1 ML SYRINGE ONE ×3 (14:07→16:49)
[2021-01-06] MEDS ORDERED: fentaNYL 250 mcg/5 ml 50 MCG/ML 5 ml VIAL (250 MCG) ONE (14:19)
[2021-01-06] MEDS ORDERED: Lactulose 30 ml UDC PO PRN (14:57)
[2021-01-06] MEDS ORDERED: Magnesium Hydroxide LIQ 30 ML UDC PO PRN (14:57)
[2021-01-06] MEDS ORDERED: diPHENhydraMINE 25 mg TAB PO PRN (14:57)
[2021-01-06] MEDS ORDERED: diPHENhydraMINE IV 50 MG/ML 1 ml VIAL (BENADRYL) IV PRN ×2 (14:57→15:15)
[2021-01-06] MEDS ORDERED: Ondansetron 4 mg VIAL 2 MG/ML 2 ml VIAL IV PRN (14:57)
[2021-01-06] MEDS ORDERED: Morphine 2 MG/ML SYRINGE IV PRN (14:57)
[2021-01-06] MEDS ORDERED: Ondansetron ODT 4 mg TAB 4 MG TAB PO PRN (14:57)
[2021-01-06] MEDS ORDERED: Lactated Ringers 1000 ml BAG 1,000 ML IV SCH (15:00)
[2021-01-06] MEDS ORDERED: Naloxone 0.4 mg VIAL 0.4 mg/ml 1 ml VIAL IV PRN ×2 (15:15→16:49)
[2021-01-06] MEDS ORDERED: DiMENhydriNATE IV 50 mg/ml 1 ml VIAL IV PUSH PRN (15:15)
[2021-01-06] MEDS ORDERED: Dexamethasone IV 4 MG/ML VIAL 1 ml VIAL ONE (15:52)
[2021-01-06] MEDS ORDERED: Ondansetron 4 mg VIAL 2 MG/ML 2 ml VIAL ONE (15:52)
[2021-01-06] MEDS ORDERED: Acetaminophen IV 1 GM/100ML 100 ML IV ONE (16:06)
[2021-01-06] MEDS: HYDROmorphone 1 MG/1 ML SYRINGE IV PRN ×4 (16:34→17:08)
[2021-01-06] MEDS: fentaNYL 100 mcg/2 ml 50 MCG/ML VIAL IV PRN ×2 (17:24→17:30)
[2021-01-06] MEDS: Magnesium Hydroxide LIQ 30 ML UDC PO SCH (22:17)
[2021-01-06] MEDS: ceFAZolin 1 GM ADVAN 1 GM in NS 0.9% 50 ML 50 ML IVPB SCH (22:18)
[2021-01-06 23:47] LABS: ABS Lymphocytes 1.2 10^3/ul (1.0-4.8); ABS Monocytes 1.3 10^3/ul (0-0.8); ABS Neutrophils 13.4 10^3/ul (1.5-7.7); Hematocrit 37 % (42-52); Hemoglobin 12.1 g/dL (14.0-18.0); Lymphocyte % 7.3 %; Mean Corpuscular HGB Conc 33 g/dL (31-36); Mean Corpuscular Hemoglobin 30 pg (27-31); Mean Corpuscular Volume 91 fL (80-94); Mean Platelet Volume 7.1 fL (7.4-10.4); Platelet Count 309 10^3/uL (150-450); Red Blood Count 4.03 10^6 /uL (4.18-5.48); Red Cell Distribution Width 13 % (10-15); White Blood Count 15.9 10^3/uL (3.5-10.8)
[2021-01-07 00:03] LABS: Calcium 8.6 mg/dL (8.6-10.3); EGFR African American 96.4 (>60); EGFR Non-African American 79.7 (>60); Potassium 3.9 mmol/L (3.5-5.0)
[2021-01-07] MEDS: ceFAZolin 1 GM ADVAN 1 GM in NS 0.9% 50 ML 50 ML IVPB SCH ×2 (05:51→14:10)
[2021-01-07 06:57] LABS: Hematocrit 31 % (42-52); Hemoglobin 10.9 g/dL (14.0-18.0); Mean Platelet Volume 7.2 fL (7.4-10.4); Platelet Count 272 10^3/uL (150-450)
[2021-01-07 07:10] LABS: Calcium 8.6 mg/dL (8.6-10.3); Potassium 4.1 mmol/L (3.5-5.0)
[2021-01-07] MEDS: Magnesium Hydroxide LIQ 30 ML UDC PO SCH (08:38)
[2021-01-07] MEDS ORDERED: Vitamin THERAPEUTIC TAB PO SCH (09:00)
[2021-01-07] MEDS ORDERED: Lisinopril/HCTZ 20/12.5 TB(NF) PO SCH (09:00)
[2021-01-07 11:49] VITALS: BP 120/60
== END 2021-01-07 15:00 | disposition home or self-care (01) ==
LOC: INTOOBSV 09:50 → AA 09:50 → SSU 18:37
PROVIDERS: ADMIT Orthopaedic Surgery Adult Reconstructive Orthopaedic Surgery; ATTEND Orthopaedic Surgery Adult Reconstructive Orthopaedic Surgery